=== PATIENT | male | born 1965 | race Caucasian/White ===

== ENCOUNTER 2022-05-03 09:51 | Emergency (ER) | payer SELFPAY ==
[~2022-05-03] VITALS: Ht 185.4 cm; Wt 79.4 kg
--- NOTE | 2022-05-03 09:54 | NUR ---
Patient to ER bed 6 to gown for evaluation. Side rails up. Report given to DEWAYNE MANRIQUEZ.
--- NOTE | 2022-05-03 09:55 | NUR ---
MD DE LEON AT [facility] WHILE PT BEING TRIAGED FOR ASSESS.
[2022-05-03] MEDS ORDERED: HYDROcodone/ACETAMIN 10-325 MG TAB PO ONE (10:00)
[2022-05-03] MEDS ORDERED: KETOROLAC TROMETHAMINE 60 MG/2 ML VIAL IM ONE (10:00)
[2022-05-03] MEDS ORDERED: IBUP-1971 PO (11:02)
--- NOTE | 2022-05-03 13:40 | NUR ---
PT ABLE TO AMBULATE TO WHEELCHAIR, REFUSED TO WALK OUT. MOVED LEFT LEG VERY WELL, NO GRIMACE NOTED. STABLE GAIT WHEN STANDING AND TAKING STEPS. VSS. NAD NOTED. SISTER OUTSIDE WAITING TO TAKE PATIENT HOME. END OF CARE.
--- NOTE | 2022-05-03 13:45 | NUR ---
Patient given written and verbal discharge instructions and verbalizes understanding. ER MD discussed with patient the results and treatment provided. Patient in stable condition. ID arm band removed. IV catheter removed intact and dressing applied, no active bleeding. Rx of NORCO, IBUPROFEN given. Patient educated on pain management and to follow up with PMD. Pain Scale 0/10. Opportunity for questions provided and answered. Medication side effect fact sheet provided.
[2022-05-03 13:57] VITALS: BP_SYST 134
== END 2022-05-03 13:57 | disposition home or self-care (01) ==
LOC: SED 09:51
DX: M54.32 Sciatica, left side (principal); M54.50 Low back pain, unspecified; Z79.899 Other long term (current) drug therapy
CPT/HCPCS: 99283; 96372; J1885